=== PATIENT | female | born 1950 | race Caucasian/White ===

== ENCOUNTER 2020-05-20 08:38 | Outpatient (CLI) | payer MEDICARE | END 2020-05-20 08:39 | disposition home or self-care (01) | LOC: CSHMAMMO 08:38 | PROVIDERS: ATTEND Obstetrics & Gynecology | DX: Z12.31 Encounter for screening mammogram for malignant neoplasm of breast (principal) | CPT/HCPCS: 77063; 77067 ==

== ENCOUNTER 2021-06-25 08:51 | Outpatient (CLI) | payer MEDICARE | END 2021-06-25 08:52 | disposition home or self-care (01) | LOC: CSHMAMMO 08:51 | PROVIDERS: ATTEND Obstetrics & Gynecology | DX: Z12.31 Encounter for screening mammogram for malignant neoplasm of breast (principal); Z80.3 Family history of malignant neoplasm of breast | CPT/HCPCS: 77063; 77067 ==

== ENCOUNTER 2021-07-15 10:00 | Outpatient (CLI) | payer MEDICARE | END 2021-07-15 10:01 | disposition home or self-care (01) | LOC: CSHMAMMO 10:00 | PROVIDERS: ATTEND Obstetrics & Gynecology | DX: Z13.820 Encounter for screening for osteoporosis (principal); M85.89 Other specified disorders of bone density and structure, multiple sites | CPT/HCPCS: 77080 ==

== ENCOUNTER 2022-09-07 09:49 | Outpatient (CLI) | payer MEDICARE | END 2022-09-07 09:50 | disposition home or self-care (01) | LOC: CSHMAMMO 09:49 | PROVIDERS: ATTEND Obstetrics & Gynecology | DX: Z12.31 Encounter for screening mammogram for malignant neoplasm of breast (principal); Z80.3 Family history of malignant neoplasm of breast | CPT/HCPCS: 77063; 77067 ==

== ENCOUNTER 2023-11-04 09:29 | Outpatient (CLI) | payer MEDICARE | END 2023-11-04 09:30 | disposition home or self-care (01) | LOC: CSHMAMMO 09:29 | PROVIDERS: ATTEND Obstetrics & Gynecology | DX: Z12.31 Encounter for screening mammogram for malignant neoplasm of breast (principal); Z80.3 Family history of malignant neoplasm of breast | CPT/HCPCS: 77067 ==